=== PATIENT | male | born 1960 | race Caucasian/White ===

== ENCOUNTER 2023-10-18 11:40 | Inpatient (IN) | payer MEDICAID ==
[2023-10-18 12:46] LABS: BASOPHILS PERCENT AUTO 0.2 % (0.1-1.3); EOSINOPHILS ABSOLUTE AUTO 0.04 K/uL (0.00-0.40); EOSINOPHILS PERCENT AUTO 0.3 % (0.0-5.4); HEMATOCRIT 41.6 % (38.4-49.7); HEMOGLOBIN 13.2 g/dL (12.9-16.9); IMMATURE GRAN PERCENT AUTO 0.9 % (0.0-0.7); LYMPHOCYTES ABSOLUTE AUTO 0.87 K/uL (0.8-3.3); LYMPHOCYTES PERCENT AUTO 7.6 % (11.4-47.7); MEAN CORPUSCULAR HEMOGLOBIN 27.7 pg (31.6-35.5); MEAN CORPUSCULAR HGB CONC 31.7 g/dL (31.6-35.5); MEAN CORPUSCULAR VOLUME 87.4 fL (81.4-99.0); NEUTROPHILS ABSOLUTE AUTO 9.65 K/uL (1.0-7.6); PLATELET COUNT,PLT 257 K/uL (130-375); RED BLOOD CELL COUNT 4.76 M/uL (4.14-5.76); WHITE BLOOD CELL COUNT,WBC 11.5 K/uL (3.2-11.0)
[2023-10-18 12:51] LABS: BASOPHILS ABSOLUTE AUTO 0.02 K/uL (0.00-0.10)
[2023-10-18] MEDS ORDERED: Albuterol/Ipratropium 3.0-0.5 MG/3 ML Neb Soln NEB ONE (12:55)
[2023-10-18 13:16] LABS: A/G RATIO 0.5 (1.2-2.2); ALANINE AMINOTRANSFERASE,ALT 112 U/L (12-78); ALBUMIN 2.4 g/dL (3.4-5.0); ALKALINE PHOSPHATASE 96 U/L (46-116); ASPARTATE AMNIOTRANSFERASE,AST 43 U/L (15-37); BILIRUBIN TOTAL 1.1 mg/dL (0.2-1.0); BLOOD UREA NITROGEN,BUN 26 mg/dL (7-18); CALCIUM 8.1 mg/dL (8.5-10.1); CARBON DIOXIDE,CO2 22 mmol/L (21-32); CHLORIDE,CL 104 mmol/L (100-108); CREATININE 1.2 mg/dL (0.8-1.3); EST CRCL DRUG DOSING (CG) 60.96 mL/min; ESTIMATED GFR 68 mL/min (>60); GLUCOSE RANDOM 86 mg/dL (74-106); POTASSIUM,K 3.8 mmol/L (3.6-5.2); PROTEIN TOTAL,TP 7.3 g/dL (6.4-8.2); SODIUM,NA 139 mmol/L (140-148)
[2023-10-18 13:19] LABS: ANION GAP 16.8 mmol/L (5.0-14.0)
[2023-10-18 13:20] LABS: TROPONIN I HIGH SENSITIVITY 98.9 pg/mL (<=60.3)
[2023-10-18 14:38] LABS: CORONAVIRUS COVID-19 NAA NEGATIVE (NEGATIVE); INFLUENZA A NAA NEGATIVE (NEGATIVE); INFLUENZA B NAA NEGATIVE (NEGATIVE); RESPIRATORY SYNCYTIAL VIR NAA NEGATIVE (NEGATIVE)
[2023-10-18 14:45] LABS: BILIRUBIN,URINE SMALL (NEGATIVE); GLUCOSE,URINE NEGATIVE (NEGATIVE); KETONES,URINE NEGATIVE (NEGATIVE); LEUKOCYTE ESTERASE,URINE NEGATIVE (NEGATIVE); NITRITE,URINE NEGATIVE (NEGATIVE); OCCULT BLOOD,URINE TRACE-INTACT (NEGATIVE); PH,URINE 5.5 (5.0-8.0); PROTEIN,URINE >=300 mg/dL (NEGATIVE)
[2023-10-18 14:53] LABS: AMORPHOUS SEDIMENT,URINE NOT SEEN; APPEARANCE,URINE SLIGHTLY CLOUDY (CLEAR); BACTERIA,URINE FEW; COLOR,URINE OTHER (YELLOW); EPITHELIAL CELLS,URINE FEW; MUCUS,URINE MODERATE; RBC,URINE 0-5 (0-5); WBC,URINE 0-5 (0-5)
[2023-10-18] MEDS ORDERED: cefTRIAXone 2 GM in Sodium Chloride 0.9% 50 ML IV ONE (15:02)
[2023-10-18] MEDS ORDERED: Doxycycline 100 MG in Sodium Chloride 0.9% 100 ML IV ONE (15:03)
[2023-10-18] MEDS ORDERED: Furosemide 40 MG/4 ML VIAL IVPUSH ONE (15:19)
[2023-10-18] MEDS ORDERED: Magnesium Hydroxide 400 MG/5 ML Susp 30 ML Cup PO PRN (17:06)
[2023-10-18] MEDS ORDERED: Ondansetron 4 MG/2 ML SDV IV PRN (17:06)
[2023-10-18] MEDS ORDERED: Lisinopril 20 MG Tab PO ONE (17:06)
[2023-10-18] MEDS ORDERED: Ondansetron 4 MG Tab.DIS PO PRN (17:06)
[2023-10-18] MEDS ORDERED: Albuterol 0.083% 2.5 MG/3 ML Neb Soln NEB PRN (17:06)
[2023-10-18] MEDS ORDERED: Nicotine 21 MG/24 Hr Patch TRDERM PRN (17:06)
[2023-10-18] MEDS: Enoxaparin 40 MG/0.4 ML Syringe SUBCUT SCH (18:14)
[2023-10-18] MEDS: Sennosides/Docusate Sodium 50-8.6 MG Tab PO PRN (18:14)
[2023-10-18] MEDS: Carvedilol 3.125 MG Tab PO SCH (20:49)
[2023-10-18] MEDS: Lactobacillus Rhamnosus GG (Probiotic) Cap PO SCH (21:03)
[2023-10-18] MEDS: Gabapentin 100 MG Cap PO SCH (21:04)
[2023-10-19 03:41] LABS: HEMATOCRIT 34.6 % (38.4-49.7); HEMOGLOBIN 11.4 g/dL (12.9-16.9); MEAN CORPUSCULAR HEMOGLOBIN 28.2 pg (31.6-35.5); MEAN CORPUSCULAR HGB CONC 32.9 g/dL (31.6-35.5); MEAN CORPUSCULAR VOLUME 85.6 fL (81.4-99.0); RED BLOOD CELL COUNT 4.04 M/uL (4.14-5.76); WHITE BLOOD CELL COUNT,WBC 11.4 K/uL (3.2-11.0)
[2023-10-19] MEDS: Acetaminophen 325 MG Tab PO PRN ×2 (03:56→07:55)
[2023-10-19 04:05] LABS: ANION GAP 14.2 mmol/L (5.0-14.0); CALCIUM 7.5 mg/dL (8.5-10.1); CREATININE 1.1 mg/dL (0.8-1.3); EST CRCL DRUG DOSING (CG) 66.75 mL/min; MAGNESIUM 1.6 mg/dL (1.8-2.4); POTASSIUM,K 3.2 mmol/L (3.6-5.2)
[2023-10-19 04:06] LABS: TROPONIN I HIGH SENSITIVITY 137.5 pg/mL (<=60.3)
[2023-10-19] MEDS ORDERED: Potassium Chloride 20 MEQ Tab.ER PO ONE ×2 (04:10→16:58)
[2023-10-19] MEDS ORDERED: Magnesium Oxide 400 MG Tab PO ONE (04:10)
[2023-10-19] MEDS: Furosemide 40 MG/4 ML VIAL IVPUSH SCH ×3 (07:55→20:01)
[2023-10-19] MEDS: Aspirin 81 MG Tab.EC PO SCH (09:05)
[2023-10-19] MEDS: Carvedilol 3.125 MG Tab PO SCH ×2 (09:05→20:01)
[2023-10-19] MEDS: Lactobacillus Rhamnosus GG (Probiotic) Cap PO SCH ×2 (09:05→20:01)
[2023-10-19] MEDS: Lisinopril 20 MG Tab PO SCH (09:06)
[2023-10-19] MEDS: Doxycycline 100 MG Cap PO SCH ×2 (13:33→20:01)
[2023-10-19] MEDS: Magnesium Sulfate/Water 2 GM in Premix Bag 1 BAG IV SCH ×2 (13:34→17:32)
[2023-10-19] MEDS: cefTRIAXone 1 GM in Sodium Chloride 0.9% 50 ML IV SCH (16:40)
[2023-10-19] MEDS: Enoxaparin 40 MG/0.4 ML Syringe SUBCUT SCH (17:30)
[2023-10-19] MEDS: Gabapentin 100 MG Cap PO SCH (20:01)
[2023-10-20 04:53] LABS: CALCIUM 7.5 mg/dL (8.5-10.1); CREATININE 1.2 mg/dL (0.8-1.3); EST CRCL DRUG DOSING (CG) 61.18 mL/min; POTASSIUM,K 3.7 mmol/L (3.6-5.2)
[2023-10-20 05:10] LABS: ANION GAP 13.7 mmol/L (5.0-14.0)
[2023-10-20 05:11] LABS: TROPONIN I HIGH SENSITIVITY 96.1 pg/mL (<=60.3)
[2023-10-20] MEDS: Acetaminophen 325 MG Tab PO PRN (07:29)
[2023-10-20] MEDS: Carvedilol 3.125 MG Tab PO SCH ×2 (08:47→20:52)
[2023-10-20] MEDS: Lactobacillus Rhamnosus GG (Probiotic) Cap PO SCH ×2 (08:49→20:52)
[2023-10-20] MEDS: Aspirin 81 MG Tab.EC PO SCH (08:49)
[2023-10-20] MEDS: Lisinopril 20 MG Tab PO SCH (08:50)
[2023-10-20] MEDS: Doxycycline 100 MG Cap PO SCH ×2 (08:50→20:53)
[2023-10-20] MEDS: Furosemide 40 MG/4 ML VIAL IVPUSH SCH (08:50)
[2023-10-20] MEDS ORDERED: Potassium Chloride 20 MEQ Tab.ER PO ONE (14:00)
[2023-10-20] MEDS: cefTRIAXone 1 GM in Sodium Chloride 0.9% 50 ML IV SCH (14:41)
[2023-10-20] MEDS: Enoxaparin 40 MG/0.4 ML Syringe SUBCUT SCH (17:31)
[2023-10-20] MEDS: Gabapentin 100 MG Cap PO SCH (20:53)
[2023-10-21] MEDS: Acetaminophen 325 MG Tab PO PRN ×2 (00:44→13:30)
[2023-10-21 05:23] LABS: CALCIUM 7.6 mg/dL (8.5-10.1); CREATININE 1.2 mg/dL (0.8-1.3); EST CRCL DRUG DOSING (CG) 63.01 mL/min; POTASSIUM,K 3.8 mmol/L (3.6-5.2)
[2023-10-21 05:26] LABS: ANION GAP 12.8 mmol/L (5.0-14.0)
[2023-10-21] MEDS: Lactobacillus Rhamnosus GG (Probiotic) Cap PO SCH ×2 (08:35→21:25)
[2023-10-21] MEDS: Aspirin 81 MG Tab.EC PO SCH (08:35)
[2023-10-21] MEDS: Doxycycline 100 MG Cap PO SCH ×2 (08:36→21:26)
[2023-10-21] MEDS: Carvedilol 3.125 MG Tab PO SCH ×2 (08:36→21:25)
[2023-10-21] MEDS: Lisinopril 20 MG Tab PO SCH (08:36)
[2023-10-21] MEDS ORDERED: Furosemide 40 MG/4 ML VIAL IVPUSH ONE ×2 (09:00→19:00)
[2023-10-21] MEDS ORDERED: Potassium Chloride 20 MEQ Tab.ER PO ONE (09:00)
[2023-10-21] MEDS: Tamsulosin 0.4 MG Cap.ER PO SCH (13:24)
[2023-10-21] MEDS: cefTRIAXone 1 GM in Sodium Chloride 0.9% 50 ML IV SCH (14:38)
[2023-10-21] MEDS ORDERED: Furosemide 40 MG/4 ML VIAL ONE (16:47)
[2023-10-21] MEDS: Enoxaparin 40 MG/0.4 ML Syringe SUBCUT SCH (18:26)
[2023-10-21] MEDS: Gabapentin 100 MG Cap PO SCH (21:25)
[2023-10-22 06:20] LABS: EST CRCL DRUG DOSING (CG) 68.74 mL/min
[2023-10-22 06:43] LABS: ANION GAP 14.4 mmol/L (5.0-14.0); POTASSIUM,K 4.4 mmol/L (3.6-5.2)
[2023-10-22 06:44] LABS: CALCIUM 7.9 mg/dL (8.5-10.1); CREATININE 1.1 mg/dL (0.8-1.3)
[2023-10-22] MEDS ORDERED: Furosemide 40 MG/4 ML VIAL IVPUSH ONE ×2 (07:10→19:00)
[2023-10-22] MEDS: Lactobacillus Rhamnosus GG (Probiotic) Cap PO SCH ×2 (08:56→20:45)
[2023-10-22] MEDS: Tamsulosin 0.4 MG Cap.ER PO SCH (08:56)
[2023-10-22] MEDS: Aspirin 81 MG Tab.EC PO SCH (08:56)
[2023-10-22] MEDS: Doxycycline 100 MG Cap PO SCH ×2 (08:57→20:45)
[2023-10-22] MEDS: Lisinopril 20 MG Tab PO SCH (08:58)
[2023-10-22] MEDS: Carvedilol 3.125 MG Tab PO SCH ×2 (09:00→20:44)
[2023-10-22] MEDS: cefTRIAXone 1 GM in Sodium Chloride 0.9% 50 ML IV SCH (15:17)
[2023-10-22] MEDS: Enoxaparin 40 MG/0.4 ML Syringe SUBCUT SCH (17:36)
[2023-10-22] MEDS: Gabapentin 100 MG Cap PO SCH (20:45)
[2023-10-23 05:59] LABS: CALCIUM 7.9 mg/dL (8.5-10.1); CREATININE 1.1 mg/dL (0.8-1.3); EST CRCL DRUG DOSING (CG) 68.74 mL/min; MAGNESIUM 1.4 mg/dL (1.8-2.4); POTASSIUM,K 3.3 mmol/L (3.6-5.2)
[2023-10-23 06:03] LABS: ANION GAP 13.3 mmol/L (5.0-14.0)
[2023-10-23] MEDS: Aspirin 81 MG Tab.EC PO SCH (08:19)
[2023-10-23] MEDS: Carvedilol 3.125 MG Tab PO SCH (08:19)
[2023-10-23] MEDS: Lisinopril 20 MG Tab PO SCH (08:20)
[2023-10-23] MEDS: Doxycycline 100 MG Cap PO SCH ×2 (08:20→20:12)
[2023-10-23] MEDS: Tamsulosin 0.4 MG Cap.ER PO SCH (08:20)
[2023-10-23] MEDS: Lactobacillus Rhamnosus GG (Probiotic) Cap PO SCH ×2 (08:20→20:11)
[2023-10-23] MEDS: Furosemide 40 MG Tab PO SCH (08:22)
[2023-10-23] MEDS ORDERED: Potassium Chloride 20 MEQ Tab.ER PO ONE ×2 (09:00→17:00)
[2023-10-23] MEDS: Magnesium Sulfate/Water 2 GM in Premix Bag 1 BAG IV SCH ×3 (09:06→21:33)
[2023-10-23] MEDS: Carvedilol 12.5 MG Tab PO SCH ×2 (09:06→20:12)
[2023-10-23] MEDS: Magnesium Oxide 400 MG Tab PO SCH ×2 (09:06→20:12)
[2023-10-23] MEDS ORDERED: Iopamidol 612 MG/ML 100 ML Bottle IV ONE (13:20)
[2023-10-23] MEDS: cefTRIAXone 1 GM in Sodium Chloride 0.9% 50 ML IV SCH (15:30)
[2023-10-23] MEDS: Enoxaparin 40 MG/0.4 ML Syringe SUBCUT SCH (17:34)
[2023-10-23] MEDS: Gabapentin 100 MG Cap PO SCH (20:12)
[2023-10-24 05:42] LABS: CALCIUM 7.9 mg/dL (8.5-10.1); CREATININE 1.2 mg/dL (0.8-1.3); EST CRCL DRUG DOSING (CG) 63.01 mL/min; MAGNESIUM 2.6 mg/dL (1.8-2.4); POTASSIUM,K 4.5 mmol/L (3.6-5.2)
[2023-10-24 05:49] LABS: ANION GAP 12.5 mmol/L (5.0-14.0)
[2023-10-24] MEDS: Lactobacillus Rhamnosus GG (Probiotic) Cap PO SCH ×2 (09:30→20:07)
[2023-10-24] MEDS: Doxycycline 100 MG Cap PO SCH ×2 (09:30→20:08)
[2023-10-24] MEDS: Aspirin 81 MG Tab.EC PO SCH (09:30)
[2023-10-24] MEDS: Magnesium Oxide 400 MG Tab PO SCH ×2 (09:30→20:07)
[2023-10-24] MEDS: Carvedilol 12.5 MG Tab PO SCH ×2 (09:31→20:07)
[2023-10-24] MEDS: Lisinopril 20 MG Tab PO SCH (09:31)
[2023-10-24] MEDS: Furosemide 40 MG Tab PO SCH (09:31)
[2023-10-24] MEDS: Tamsulosin 0.4 MG Cap.ER PO SCH (09:34)
[2023-10-24] MEDS ORDERED: Iopamidol 755 Mg/ML 100 ML Bottle IV ONE (11:37)
[2023-10-24] MEDS ORDERED: Sodium Chloride 0.9% 100 ML IV SCH (11:45)
[2023-10-24] MEDS: Clopidogrel 75 MG Tab PO SCH (12:40)
[2023-10-24] MEDS: cefTRIAXone 1 GM in Sodium Chloride 0.9% 50 ML IV SCH (15:30)
[2023-10-24] MEDS: Enoxaparin 40 MG/0.4 ML Syringe SUBCUT SCH (17:59)
[2023-10-24] MEDS: Gabapentin 100 MG Cap PO SCH (20:07)
[2023-10-24] MEDS: Acetaminophen 325 MG Tab PO PRN (20:07)
[2023-10-24] MEDS: atorvaSTATin 20 MG Tab PO SCH (20:08)
[2023-10-25] MEDS: Furosemide 40 MG Tab PO SCH (08:44)
[2023-10-25] MEDS: Aspirin 81 MG Tab.EC PO SCH (08:44)
[2023-10-25] MEDS: Doxycycline 100 MG Cap PO SCH (08:45)
[2023-10-25] MEDS: Clopidogrel 75 MG Tab PO SCH (08:45)
[2023-10-25] MEDS: Lactobacillus Rhamnosus GG (Probiotic) Cap PO SCH ×2 (08:45→21:19)
[2023-10-25] MEDS: Magnesium Oxide 400 MG Tab PO SCH ×2 (08:45→21:19)
[2023-10-25] MEDS: Carvedilol 12.5 MG Tab PO SCH ×2 (08:46→21:20)
[2023-10-25] MEDS: Tamsulosin 0.4 MG Cap.ER PO SCH (08:46)
[2023-10-25] MEDS: Lisinopril 20 MG Tab PO SCH (08:47)
[2023-10-25] MEDS: Sennosides/Docusate Sodium 50-8.6 MG Tab PO PRN (10:16)
[2023-10-25] MEDS: Enoxaparin 40 MG/0.4 ML Syringe SUBCUT SCH (17:32)
[2023-10-25] MEDS: atorvaSTATin 20 MG Tab PO SCH (21:19)
[2023-10-25] MEDS: Gabapentin 100 MG Cap PO SCH (21:19)
[2023-10-26 06:14] LABS: HEMATOCRIT 35.3 % (38.4-49.7); HEMOGLOBIN 11.5 g/dL (12.9-16.9); MEAN CORPUSCULAR HEMOGLOBIN 27.6 pg (31.6-35.5); MEAN CORPUSCULAR HGB CONC 32.6 g/dL (31.6-35.5); MEAN CORPUSCULAR VOLUME 84.7 fL (81.4-99.0); RED BLOOD CELL COUNT 4.17 M/uL (4.14-5.76)
[2023-10-26 06:21] LABS: CALCIUM 8.2 mg/dL (8.5-10.1); CREATININE 1.1 mg/dL (0.8-1.3); EST CRCL DRUG DOSING (CG) 68.74 mL/min; POTASSIUM,K 4.6 mmol/L (3.6-5.2)
[2023-10-26 06:23] LABS: ANION GAP 11.6 mmol/L (5.0-14.0)
[2023-10-26] MEDS: Tamsulosin 0.4 MG Cap.ER PO SCH (08:46)
[2023-10-26] MEDS: Magnesium Oxide 400 MG Tab PO SCH ×2 (08:46→21:09)
[2023-10-26] MEDS: Lactobacillus Rhamnosus GG (Probiotic) Cap PO SCH ×2 (08:46→21:09)
[2023-10-26] MEDS: Aspirin 81 MG Tab.EC PO SCH (08:46)
[2023-10-26] MEDS: Clopidogrel 75 MG Tab PO SCH (08:47)
[2023-10-26] MEDS: Lisinopril 20 MG Tab PO SCH (08:47)
[2023-10-26] MEDS: Furosemide 40 MG Tab PO SCH (08:47)
[2023-10-26] MEDS: Carvedilol 12.5 MG Tab PO SCH ×2 (08:49→21:10)
[2023-10-26] MEDS: Enoxaparin 40 MG/0.4 ML Syringe SUBCUT SCH (18:02)
[2023-10-26] MEDS: atorvaSTATin 20 MG Tab PO SCH (21:10)
[2023-10-26] MEDS: Gabapentin 100 MG Cap PO SCH (21:10)
[2023-10-27] MEDS: Furosemide 40 MG Tab PO SCH (08:00)
[2023-10-27] MEDS: Lactobacillus Rhamnosus GG (Probiotic) Cap PO SCH ×2 (08:00→20:06)
[2023-10-27] MEDS: Aspirin 81 MG Tab.EC PO SCH (08:00)
[2023-10-27] MEDS: Clopidogrel 75 MG Tab PO SCH (08:01)
[2023-10-27] MEDS: Carvedilol 12.5 MG Tab PO SCH ×2 (08:03→20:07)
[2023-10-27] MEDS: Tamsulosin 0.4 MG Cap.ER PO SCH (08:04)
[2023-10-27] MEDS: Lisinopril 20 MG Tab PO SCH (08:04)
[2023-10-27] MEDS: Magnesium Oxide 400 MG Tab PO SCH ×2 (10:11→20:06)
[2023-10-27] MEDS: Acetaminophen 325 MG Tab PO PRN (11:39)
[2023-10-27] MEDS: Enoxaparin 40 MG/0.4 ML Syringe SUBCUT SCH (18:51)
[2023-10-27] MEDS: Gabapentin 100 MG Cap PO SCH (20:06)
[2023-10-27] MEDS: atorvaSTATin 20 MG Tab PO SCH (20:06)
[2023-10-28 05:12] LABS: CALCIUM 8.4 mg/dL (8.5-10.1); CREATININE 1.2 mg/dL (0.8-1.3); EST CRCL DRUG DOSING (CG) 63.01 mL/min
[2023-10-28] MEDS: Lactobacillus Rhamnosus GG (Probiotic) Cap PO SCH ×2 (09:09→20:01)
[2023-10-28] MEDS: Magnesium Oxide 400 MG Tab PO SCH ×2 (09:09→20:02)
[2023-10-28] MEDS: Tamsulosin 0.4 MG Cap.ER PO SCH (09:10)
[2023-10-28] MEDS: Furosemide 40 MG Tab PO SCH (09:10)
[2023-10-28] MEDS: Aspirin 81 MG Tab.EC PO SCH (09:10)
[2023-10-28] MEDS: Clopidogrel 75 MG Tab PO SCH (09:10)
[2023-10-28] MEDS: Lisinopril 20 MG Tab PO SCH (09:11)
[2023-10-28] MEDS: Carvedilol 12.5 MG Tab PO SCH ×2 (09:13→20:01)
[2023-10-28] MEDS: Enoxaparin 40 MG/0.4 ML Syringe SUBCUT SCH (17:35)
[2023-10-28] MEDS: atorvaSTATin 20 MG Tab PO SCH (20:02)
[2023-10-28] MEDS: Gabapentin 100 MG Cap PO SCH (20:02)
[2023-10-29] MEDS: Lisinopril 20 MG Tab PO SCH (08:41)
[2023-10-29] MEDS: Lactobacillus Rhamnosus GG (Probiotic) Cap PO SCH ×2 (08:41→20:10)
[2023-10-29] MEDS: Magnesium Oxide 400 MG Tab PO SCH ×2 (08:42→20:10)
[2023-10-29] MEDS: Clopidogrel 75 MG Tab PO SCH (08:42)
[2023-10-29] MEDS: Carvedilol 12.5 MG Tab PO SCH ×2 (08:42→20:10)
[2023-10-29] MEDS: Aspirin 81 MG Tab.EC PO SCH (08:42)
[2023-10-29] MEDS: Tamsulosin 0.4 MG Cap.ER PO SCH (08:42)
[2023-10-29] MEDS: Furosemide 40 MG Tab PO SCH (08:42)
[2023-10-29] MEDS: Enoxaparin 40 MG/0.4 ML Syringe SUBCUT SCH (19:07)
[2023-10-29] MEDS: atorvaSTATin 20 MG Tab PO SCH (20:10)
[2023-10-29] MEDS: Gabapentin 100 MG Cap PO SCH (20:11)
[2023-10-30 06:45] LABS: CALCIUM 8.2 mg/dL (8.5-10.1); CREATININE 1.2 mg/dL (0.8-1.3); EST CRCL DRUG DOSING (CG) 63.01 mL/min; POTASSIUM,K 3.9 mmol/L (3.6-5.2)
[2023-10-30 06:47] LABS: ANION GAP 12.9 mmol/L (5.0-14.0)
[2023-10-30] MEDS: Aspirin 81 MG Tab.EC PO SCH (08:19)
[2023-10-30] MEDS: Clopidogrel 75 MG Tab PO SCH (08:19)
[2023-10-30] MEDS: Magnesium Oxide 400 MG Tab PO SCH (08:19)
[2023-10-30] MEDS: Tamsulosin 0.4 MG Cap.ER PO SCH (08:19)
[2023-10-30] MEDS: Furosemide 40 MG Tab PO SCH (08:19)
[2023-10-30] MEDS: Lactobacillus Rhamnosus GG (Probiotic) Cap PO SCH (08:19)
[2023-10-30] MEDS: Carvedilol 12.5 MG Tab PO SCH (08:20)
[2023-10-30] MEDS: Lisinopril 20 MG Tab PO SCH (08:20)
[2023-10-30] MEDS: Acetaminophen 325 MG Tab PO PRN (09:17)
[2023-10-30] MEDS ORDERED: Melatonin 3 MG Tab PO SCH (21:00)
== END 2023-10-30 15:18 | DRG 291 ==
LOC: JP.ED 11:40 → JP.MS 16:19
PROVIDERS: ADMIT Internal Medicine; ATTEND Internal Medicine
PROC: 0TPB70Z Removal of Drainage Device from Bladder, Via Natural or Artificial Opening (ICD-10-PCS; principal; 2023-10-23)
DX: I11.0 Hypertensive heart disease with heart failure (principal); I50.43 Acute on chronic combined systolic (congestive) and diastolic (congestive) heart failure; I63.9 Cerebral infarction, unspecified; J18.9 Pneumonia, unspecified organism; I24.89 Other forms of acute ischemic heart disease; Z66 Do not resuscitate; F17.210 Nicotine dependence, cigarettes, uncomplicated; R33.9 Retention of urine, unspecified; G47.33 Obstructive sleep apnea (adult) (pediatric); I25.10 Atherosclerotic heart disease of native coronary artery without angina pectoris; I27.20 Pulmonary hypertension, unspecified; Z79.82 Long term (current) use of aspirin; Z95.5 Presence of coronary angioplasty implant and graft; Z95.1 Presence of aortocoronary bypass graft; Z98.890 Other specified postprocedural states; Z11.52 Encounter for screening for COVID-19
CPT/HCPCS: 0241U; 36415; 51702; 70470; 70470-26; 70496; 70496-26; 70498; 70498-26; 71250; 80048; 80053; 81001; 83605; 83735; 83880; 84132; 84145; 84484; 85025; 85027; 87040; 93005; 93010; 93306; 94640; 96125-GO; 96365; 96366; 96367; 96375; 97110-GP; 97116-GP; 97161-GP; 97165-GO; 97530-GP; 99285; 99285-25; A9270-GY; J0696; J1650; J1940; J3475; J3490; J7620; Q9967

== ENCOUNTER 2023-11-02 21:21 | Inpatient (IN) | payer MEDICAID ==
[2023-11-02] MEDS ORDERED: Sodium Chloride 0.9% 10 ML Syringe FLUSH PRN (22:21)
[2023-11-02] MEDS ORDERED: Pantoprazole 40 MG Vial IVPUSH ONE (22:21)
[2023-11-02 22:37] LABS: BASOPHILS ABSOLUTE AUTO 0.04 K/uL (0.00-0.10); BASOPHILS PERCENT AUTO 0.5 % (0.1-1.3); EOSINOPHILS ABSOLUTE AUTO 0.06 K/uL (0.00-0.40); EOSINOPHILS PERCENT AUTO 0.8 % (0.0-5.4); HEMATOCRIT 28.5 % (38.4-49.7); HEMOGLOBIN 9.3 g/dL (12.9-16.9); IMMATURE GRAN ABSOLUTE AUTO 0.09 K/uL (0.00-0.23); IMMATURE GRAN PERCENT AUTO 1.2 % (0.0-0.7); LYMPHOCYTES ABSOLUTE AUTO 0.84 K/uL (0.8-3.3); LYMPHOCYTES PERCENT AUTO 11.5 % (11.4-47.7); MEAN CORPUSCULAR HEMOGLOBIN 27.4 pg (31.6-35.5); MEAN CORPUSCULAR HGB CONC 32.6 g/dL (31.6-35.5); MEAN CORPUSCULAR VOLUME 83.8 fL (81.4-99.0); MONOCYTES ABSOLUTE AUTO 0.88 K/uL (0.20-0.90); MONOCYTES PERCENT AUTO 12.1 % (3.3-12.6); NEUTROPHILS ABSOLUTE AUTO 5.38 K/uL (1.0-7.6); NEUTROPHILS PERCENT AUTO 73.9 % (40.0-78.1); PLATELET COUNT,PLT 316 K/uL (130-375); WHITE BLOOD CELL COUNT,WBC 7.3 K/uL (3.2-11.0)
[2023-11-02 22:58] LABS: INR 1.1; PROTHROMBIN TIME 11.1 sec (9.2-10.6); PTT,PARTIAL THROMBOPLSTIN TIME 28.3 sec (21.8-27.3)
[2023-11-02 23:00] LABS: A/G RATIO 0.5 (1.2-2.2); ALANINE AMINOTRANSFERASE,ALT 68 U/L (12-78); ALBUMIN 2.3 g/dL (3.4-5.0); ALKALINE PHOSPHATASE 130 U/L (46-116); ASPARTATE AMNIOTRANSFERASE,AST 64 U/L (15-37); BILIRUBIN TOTAL 0.6 mg/dL (0.2-1.0); BLOOD UREA NITROGEN,BUN 48 mg/dL (7-18); CALCIUM 8.2 mg/dL (8.5-10.1); CARBON DIOXIDE,CO2 22 mmol/L (21-32); CHLORIDE,CL 97 mmol/L (100-108); CREATININE 1.4 mg/dL (0.8-1.3); EST CRCL DRUG DOSING (CG) 55.76 mL/min; ESTIMATED GFR 56 mL/min (>60); GLUCOSE RANDOM 93 mg/dL (74-106); POTASSIUM,K 3.6 mmol/L (3.6-5.2); PROTEIN TOTAL,TP 7.1 g/dL (6.4-8.2); SODIUM,NA 129 mmol/L (140-148)
[2023-11-02 23:01] LABS: ANION GAP 13.6 mmol/L (5.0-14.0)
[2023-11-03] MEDS ORDERED: Ondansetron 4 MG/2 ML SDV IVPUSH STA (00:02)
[2023-11-03 00:32] LABS: APPEARANCE,URINE CLEAR (CLEAR); BILIRUBIN,URINE NEGATIVE (NEGATIVE); COLOR,URINE YELLOW (YELLOW); GLUCOSE,URINE NEGATIVE (NEGATIVE); KETONES,URINE NEGATIVE (NEGATIVE); LEUKOCYTE ESTERASE,URINE NEGATIVE (NEGATIVE); NITRITE,URINE NEGATIVE (NEGATIVE); OCCULT BLOOD,URINE TRACE-INTACT (NEGATIVE); PH,URINE 5.5 (5.0-8.0); PROTEIN,URINE TRACE mg/dL (NEGATIVE); UROBILINOGEN,URINE 0.2 EU/dL (0.2-1.0)
[2023-11-03 00:34] LABS: AMORPHOUS SEDIMENT,URINE NOT SEEN; BACTERIA,URINE FEW; EPITHELIAL CELLS,URINE RARE; MUCUS,URINE RARE; RBC,URINE 0-5 (0-5); WBC,URINE 0-5 (0-5)
[2023-11-03] MEDS ORDERED: Nicotine 21 MG/24 Hr Patch TRDERM PRN (00:40)
[2023-11-03 01:01] LABS: INFLUENZA A NAA NEGATIVE (NEGATIVE); INFLUENZA B NAA NEGATIVE (NEGATIVE); RESPIRATORY SYNCYTIAL VIR NAA NEGATIVE (NEGATIVE)
[2023-11-03 01:03] LABS: CORONAVIRUS COVID-19 NAA POSITIVE (NEGATIVE)
[2023-11-03] MEDS ORDERED: Ondansetron 4 MG Tab.DIS PO PRN (01:23)
[2023-11-03] MEDS ORDERED: Ondansetron 4 MG/2 ML SDV IV PRN (01:23)
[2023-11-03] MEDS ORDERED: Magnesium Hydroxide 400 MG/5 ML Susp 30 ML Cup PO PRN (01:23)
[2023-11-03] MEDS: Sodium Chloride 0.9% 1,000 ML IV SCH ×3 (01:49→19:51)
[2023-11-03 05:09] LABS: HEMATOCRIT 28.2 % (38.4-49.7); HEMOGLOBIN 9.1 g/dL (12.9-16.9); MEAN CORPUSCULAR HEMOGLOBIN 27.4 pg (31.6-35.5); MEAN CORPUSCULAR HGB CONC 32.3 g/dL (31.6-35.5); MEAN CORPUSCULAR VOLUME 84.9 fL (81.4-99.0); RED BLOOD CELL COUNT 3.32 M/uL (4.14-5.76); WHITE BLOOD CELL COUNT,WBC 10.4 K/uL (3.2-11.0)
[2023-11-03 05:25] LABS: BLOOD UREA NITROGEN,BUN 46 mg/dL (7-18); CALCIUM 7.8 mg/dL (8.5-10.1); CARBON DIOXIDE,CO2 22 mmol/L (21-32); CHLORIDE,CL 99 mmol/L (100-108); CREATININE 1.3 mg/dL (0.8-1.3); ESTIMATED GFR 62 mL/min (>60); GLUCOSE RANDOM 89 mg/dL (74-106); POTASSIUM,K 3.4 mmol/L (3.6-5.2); SODIUM,NA 131 mmol/L (140-148)
[2023-11-03 05:28] LABS: ANION GAP 13.4 mmol/L (5.0-14.0)
[2023-11-03] MEDS ORDERED: Non-Formulary Medication 1 Each (Lisinopril [Lisinopril] 40 MG Tablet) PO SCH (09:00)
[2023-11-03] MEDS: Lisinopril 20 MG Tab PO SCH (09:17)
[2023-11-03] MEDS: Pantoprazole 40 MG Vial IV SCH ×3 (09:18→22:06)
[2023-11-03] MEDS: Potassium Chloride 10 MEQ in Premix Bag 1 BAG IV SCH ×4 (10:08→13:32)
[2023-11-03] MEDS: Sucralfate Suspension 1 GM/10 ML Cup PO SCH ×3 (10:09→19:50)
[2023-11-03] MEDS: Magnesium Oxide 400 MG Tab PO SCH (10:46)
[2023-11-03] MEDS: Furosemide 40 MG Tab PO SCH (10:47)
[2023-11-03] MEDS: Carvedilol 12.5 MG Tab PO SCH ×3 (10:47→20:05)
[2023-11-03] MEDS: Tamsulosin 0.4 MG Cap.ER PO SCH (10:48)
[2023-11-03] MEDS: Gabapentin 100 MG Cap PO SCH ×2 (19:51→20:05)
[2023-11-03] MEDS: atorvaSTATin 20 MG Tab PO SCH ×2 (19:51→20:05)
[2023-11-03] MEDS ORDERED: Non-Formulary Medication 1 Each (Atorvastatin [Lipitor] 40 MG Tablet) PO SCH (21:00)
[2023-11-03] MEDS ORDERED: Non-Formulary Medication 1 Each (Melatonin [Melatonin] 10 MG Tablet) PO SCH ×2 (21:00)
[2023-11-03] MEDS: Melatonin 3 MG Tab PO PRN (23:05)
[2023-11-03] MEDS: Acetaminophen 325 MG Tab PO PRN (23:05)
[2023-11-04] MEDS: Sodium Chloride 0.9% 1,000 ML IV SCH (00:08)
[2023-11-04] MEDS: oxyCODONE 5 MG Tab PO PRN ×2 (00:34→14:51)
[2023-11-04 03:08] LABS: HEMATOCRIT 25.9 % (38.4-49.7); HEMOGLOBIN 8.3 g/dL (12.9-16.9); MEAN CORPUSCULAR HEMOGLOBIN 27.9 pg (31.6-35.5); MEAN CORPUSCULAR VOLUME 87.2 fL (81.4-99.0); RED BLOOD CELL COUNT 2.97 M/uL (4.14-5.76); WHITE BLOOD CELL COUNT,WBC 9.6 K/uL (3.2-11.0)
[2023-11-04 03:24] LABS: CALCIUM 7.2 mg/dL (8.5-10.1); CREATININE 1.1 mg/dL (0.8-1.3); EST CRCL DRUG DOSING (CG) 69.77 mL/min; POTASSIUM,K 3.1 mmol/L (3.6-5.2)
[2023-11-04 03:27] LABS: ANION GAP 11.1 mmol/L (5.0-14.0)
[2023-11-04] MEDS ORDERED: Potassium Chloride 20 MEQ Tab.ER PO ONE ×2 (08:20→17:00)
[2023-11-04] MEDS: Tamsulosin 0.4 MG Cap.ER PO SCH (08:33)
[2023-11-04] MEDS: Sucralfate Suspension 1 GM/10 ML Cup PO SCH ×2 (08:33→10:01)
[2023-11-04] MEDS: Carvedilol 12.5 MG Tab PO SCH ×2 (08:33→20:12)
[2023-11-04] MEDS: Magnesium Oxide 400 MG Tab PO SCH ×2 (08:36→20:12)
[2023-11-04] MEDS: Lisinopril 20 MG Tab PO SCH (08:36)
[2023-11-04] MEDS: Furosemide 40 MG Tab PO SCH (08:36)
[2023-11-04] MEDS: Pantoprazole 40 MG Vial IV SCH ×2 (10:00→21:54)
[2023-11-04] MEDS: Magnesium Sulfate/Water 2 GM in Premix Bag 1 BAG IV SCH ×2 (14:48→20:12)
[2023-11-04] MEDS: Sucralfate 1 GM Tab PO SCH ×2 (17:54→20:13)
[2023-11-04] MEDS: atorvaSTATin 20 MG Tab PO SCH (20:12)
[2023-11-04] MEDS: Gabapentin 100 MG Cap PO SCH (20:12)
[2023-11-05 05:58] LABS: CALCIUM 7.3 mg/dL (8.5-10.1); EST CRCL DRUG DOSING (CG) 78.07 mL/min; MAGNESIUM 2.2 mg/dL (1.8-2.4); POTASSIUM,K 3.7 mmol/L (3.6-5.2)
[2023-11-05 06:00] LABS: ANION GAP 12.7 mmol/L (5.0-14.0)
[2023-11-05] MEDS: Sucralfate 1 GM Tab PO SCH ×4 (07:52→20:30)
[2023-11-05] MEDS: Magnesium Oxide 400 MG Tab PO SCH ×2 (08:00→20:31)
[2023-11-05] MEDS: Lisinopril 20 MG Tab PO SCH (08:00)
[2023-11-05] MEDS: Furosemide 40 MG Tab PO SCH (08:00)
[2023-11-05] MEDS: Tamsulosin 0.4 MG Cap.ER PO SCH (08:00)
[2023-11-05] MEDS: Carvedilol 12.5 MG Tab PO SCH ×2 (08:00→20:31)
[2023-11-05] MEDS: Pantoprazole 40 MG Vial IV SCH ×2 (10:37→21:12)
[2023-11-05] MEDS ORDERED: Acetaminophen/HYDROcodone 325-5 MG Tab PO PRN (10:56)
[2023-11-05] MEDS: oxyCODONE 5 MG Tab PO PRN (13:07)
[2023-11-05] MEDS: Melatonin 3 MG Tab PO PRN (20:30)
[2023-11-05] MEDS: Acetaminophen 325 MG Tab PO PRN (20:30)
[2023-11-05] MEDS: Sennosides/Docusate Sodium 50-8.6 MG Tab PO PRN (20:30)
[2023-11-05] MEDS: atorvaSTATin 20 MG Tab PO SCH (20:31)
[2023-11-05] MEDS: Gabapentin 100 MG Cap PO SCH (20:32)
[2023-11-06] MEDS: Furosemide 40 MG Tab PO SCH (08:47)
[2023-11-06] MEDS: Magnesium Oxide 400 MG Tab PO SCH ×2 (08:48→20:22)
[2023-11-06] MEDS: Tamsulosin 0.4 MG Cap.ER PO SCH (08:48)
[2023-11-06] MEDS: Sucralfate 1 GM Tab PO SCH ×4 (08:48→20:22)
[2023-11-06] MEDS: Carvedilol 12.5 MG Tab PO SCH ×2 (08:48→20:22)
[2023-11-06] MEDS: Lisinopril 20 MG Tab PO SCH (08:48)
[2023-11-06] MEDS: Pantoprazole 40 MG Tab.CR PO SCH ×2 (09:00→16:48)
[2023-11-06] MEDS: Melatonin 3 MG Tab PO PRN (20:21)
[2023-11-06] MEDS: Acetaminophen 325 MG Tab PO PRN (20:22)
[2023-11-06] MEDS: Sennosides/Docusate Sodium 50-8.6 MG Tab PO PRN (20:22)
[2023-11-06] MEDS: atorvaSTATin 20 MG Tab PO SCH (20:23)
[2023-11-06] MEDS: Gabapentin 100 MG Cap PO SCH (20:23)
[2023-11-07] MEDS: oxyCODONE 5 MG Tab PO PRN (00:54)
[2023-11-07] MEDS: Sucralfate 1 GM Tab PO SCH ×2 (07:25→12:08)
[2023-11-07] MEDS: Pantoprazole 40 MG Tab.CR PO SCH (07:25)
[2023-11-07] MEDS: Magnesium Oxide 400 MG Tab PO SCH (09:36)
[2023-11-07] MEDS: Furosemide 40 MG Tab PO SCH (09:36)
[2023-11-07] MEDS: Lisinopril 20 MG Tab PO SCH (09:37)
[2023-11-07] MEDS: Carvedilol 12.5 MG Tab PO SCH (09:37)
[2023-11-07] MEDS: Tamsulosin 0.4 MG Cap.ER PO SCH (09:37)
== END 2023-11-07 15:10 | DRG 377 ==
LOC: JP.ED 21:21 → UNDOADMIN 11-03 00:22 → JP.MS 11-03 00:22
PROVIDERS: ADMIT Registered Nurse; ATTEND Hospitalist
PROC: 30233N1 Transfusion of Nonautologous Red Blood Cells into Peripheral Vein, Percutaneous Approach (ICD-10-PCS; principal; 2023-11-04)
DX: K92.2 Gastrointestinal hemorrhage, unspecified (principal); I50.43 Acute on chronic combined systolic (congestive) and diastolic (congestive) heart failure; U07.1 COVID-19; D62 Acute posthemorrhagic anemia; N17.9 Acute kidney failure, unspecified; I25.10 Atherosclerotic heart disease of native coronary artery without angina pectoris; G47.33 Obstructive sleep apnea (adult) (pediatric); I11.0 Hypertensive heart disease with heart failure; R33.9 Retention of urine, unspecified; F17.210 Nicotine dependence, cigarettes, uncomplicated; Z86.73 Personal history of transient ischemic attack (TIA), and cerebral infarction without residual deficits; Z79.899 Other long term (current) drug therapy; Z79.02 Long term (current) use of antithrombotics/antiplatelets; Z79.82 Long term (current) use of aspirin; Z95.1 Presence of aortocoronary bypass graft; Z95.5 Presence of coronary angioplasty implant and graft
CPT/HCPCS: 0241U; 36415; 36430; 70450; 71045; 71045-26; 80048; 80053; 81001; 82140; 83735; 84484; 85018; 85025; 85027; 85610; 85730; 86850; 86900; 86901; 86920; 86922; 96374; 97110-GP; 97162-GP; 97165-GO; 99285-25; A9270-GY; C9113; J2405; J3475; J3480; J3490; J7030; P9016

== ENCOUNTER 2023-12-04 10:55 | Emergency (ER) | payer MEDICAID | END 2023-12-04 15:52 | disposition home or self-care (01) | LOC: JP.ED 10:55 | DX: R53.83 Other fatigue (principal); I11.0 Hypertensive heart disease with heart failure; I50.9 Heart failure, unspecified; I25.10 Atherosclerotic heart disease of native coronary artery without angina pectoris; Z86.73 Personal history of transient ischemic attack (TIA), and cerebral infarction without residual deficits; Z87.891 Personal history of nicotine dependence; Z79.82 Long term (current) use of aspirin; Z79.899 Other long term (current) drug therapy; Z79.02 Long term (current) use of antithrombotics/antiplatelets | CPT/HCPCS: 99283 ==

== ENCOUNTER 2024-05-21 16:02 | Inpatient (IN) | payer MEDICAID ==
[2024-05-21 17:38] LABS: APPEARANCE,URINE CLEAR (CLEAR); BILIRUBIN,URINE NEGATIVE (NEGATIVE); COLOR,URINE YELLOW (YELLOW); GLUCOSE,URINE NEGATIVE (NEGATIVE); KETONES,URINE NEGATIVE (NEGATIVE); LEUKOCYTE ESTERASE,URINE NEGATIVE (NEGATIVE); NITRITE,URINE NEGATIVE (NEGATIVE); OCCULT BLOOD,URINE NEGATIVE (NEGATIVE); PH,URINE 5.5 (5.0-8.0); PROTEIN,URINE NEGATIVE (NEGATIVE); UROBILINOGEN,URINE 0.2 EU/dL (0.2-1.0)
[2024-05-21 17:40] LABS: RBC,URINE 0-5 (0-5); WBC,URINE NOT SEEN (0-5)
[2024-05-21 17:41] LABS: AMORPHOUS SEDIMENT,URINE NOT SEEN; BACTERIA,URINE NOT SEEN; EPITHELIAL CELLS,URINE NOT SEEN; MUCUS,URINE NOT SEEN
[2024-05-21 17:54] LABS: BASOPHILS ABSOLUTE AUTO 0.03 K/uL (0.00-0.10); BASOPHILS PERCENT AUTO 0.3 % (0.1-1.3); EOSINOPHILS ABSOLUTE AUTO 0.21 K/uL (0.00-0.40); EOSINOPHILS PERCENT AUTO 1.9 % (0.0-5.4); HEMATOCRIT 37.2 % (38.4-49.7); HEMOGLOBIN 12.6 g/dL (12.9-16.9); IMMATURE GRAN ABSOLUTE AUTO 0.07 K/uL (0.00-0.23); IMMATURE GRAN PERCENT AUTO 0.6 % (0.0-0.7); LYMPHOCYTES ABSOLUTE AUTO 0.98 K/uL (0.8-3.3); LYMPHOCYTES PERCENT AUTO 8.7 % (11.4-47.7); MEAN CORPUSCULAR HEMOGLOBIN 31.9 pg (31.6-35.5); MEAN CORPUSCULAR HGB CONC 33.9 g/dL (31.6-35.5); MEAN CORPUSCULAR VOLUME 94.2 fL (81.4-99.0); MONOCYTES ABSOLUTE AUTO 0.78 K/uL (0.20-0.90); MONOCYTES PERCENT AUTO 6.9 % (3.3-12.6); NEUTROPHILS ABSOLUTE AUTO 9.18 K/uL (1.0-7.6); NEUTROPHILS PERCENT AUTO 81.6 % (40.0-78.1); PLATELET COUNT,PLT 251 K/uL (130-375); RED BLOOD CELL COUNT 3.95 M/uL (4.14-5.76); WHITE BLOOD CELL COUNT,WBC 11.3 K/uL (3.2-11.0)
[2024-05-21 18:15] LABS: A/G RATIO 0.7 (1.2-2.2); ALANINE AMINOTRANSFERASE,ALT 22 U/L (12-78); ALBUMIN 3.6 g/dL (3.4-5.0); ALKALINE PHOSPHATASE 93 U/L (46-116); ASPARTATE AMNIOTRANSFERASE,AST 19 U/L (15-37); BILIRUBIN TOTAL 1.1 mg/dL (0.2-1.0); BLOOD UREA NITROGEN,BUN 56 mg/dL (7-18); C-REACTIVE PROTEIN 8.23 mg/dL (<0.50); CALCIUM 9.2 mg/dL (8.5-10.1); CARBON DIOXIDE,CO2 24 mmol/L (21-32); CHLORIDE,CL 99 mmol/L (100-108); CREATININE 1.7 mg/dL (0.8-1.3); EST CRCL DRUG DOSING (CG) 45.92 mL/min; ESTIMATED GFR 45 mL/min (>60); GLUCOSE RANDOM 103 mg/dL (74-106); POTASSIUM,K 4.7 mmol/L (3.6-5.2); PROTEIN TOTAL,TP 9.1 g/dL (6.4-8.2); SODIUM,NA 136 mmol/L (140-148)
[2024-05-21 18:16] LABS: ANION GAP 17.7 mmol/L (5.0-14.0)
[2024-05-21] MEDS: fentaNYL 100 MCG/2 ML SDV IVPUSH ONE (18:29)
[2024-05-21] MEDS: Sodium Chloride 0.9% 1,000 ML IV SCH ×2 (18:40→23:00)
[2024-05-21] MEDS: Sodium Chloride 0.9% 100 ML ONE (19:03)
[2024-05-21] MEDS: fentaNYL 100 MCG/2 ML SDV ONE (19:03)
[2024-05-21] MEDS: Diltiazem 25 MG/5 ML SDV IVPUSH ONE (19:04)
[2024-05-21] MEDS: Piperacillin/Tazobactam 4.5 GM in Sodium Chloride 0.9% 100 ML IV ONE (19:05)
[2024-05-21] MEDS: Ketorolac 30 MG/ML SDV IVPUSH ONE (19:06)
[2024-05-21] MEDS ORDERED: Naloxone 0.4 MG/ML SDV IVPUSH PRN ×2 (20:55→22:34)
[2024-05-21] MEDS: ceFAZolin 1 GM in Sodium Chloride 0.9% 50 ML IV ONE (21:57)
[2024-05-21] MEDS: fentaNYL 50 MCG/ML SDV IVPUSH ONE (21:57)
[2024-05-21] MEDS ORDERED: Sodium Chloride 0.9% 10 ML Syringe FLUSH PRN (22:34)
[2024-05-21] MEDS: Diltiazem 100 MG in Sodium Chloride 0.9% 100 ML IV SCH (22:59)
[2024-05-21] MEDS ORDERED: Vancomycin 1 GM SDV IV SCH (23:00)
[2024-05-21] MEDS: Piperacillin/Tazobactam 4.5 GM in Sodium Chloride 0.9% 100 ML IV SCH (23:06)
[2024-05-21] MEDS: Haloperidol 1 MG Tab PO PRN (23:20)
[2024-05-21] MEDS: oxyCODONE 5 MG Tab PO PRN (23:20)
[2024-05-21] MEDS: Enoxaparin 40 MG/0.4 ML Syringe SUBCUT SCH (23:23)
[2024-05-22] MEDS: Acetaminophen 325 MG Tab PO PRN (03:16)
[2024-05-22 05:06] LABS: HEMATOCRIT 29.9 % (38.4-49.7); MEAN CORPUSCULAR HEMOGLOBIN 31.4 pg (31.6-35.5); MEAN CORPUSCULAR HGB CONC 33.4 g/dL (31.6-35.5); RED BLOOD CELL COUNT 3.18 M/uL (4.14-5.76); WHITE BLOOD CELL COUNT,WBC 11.4 K/uL (3.2-11.0)
[2024-05-22 05:20] LABS: CALCIUM 8.1 mg/dL (8.5-10.1); CREATININE 1.7 mg/dL (0.8-1.3); EST CRCL DRUG DOSING (CG) 45.92 mL/min; MAGNESIUM 1.5 mg/dL (1.8-2.4); POTASSIUM,K 3.9 mmol/L (3.6-5.2)
[2024-05-22 05:21] LABS: ANION GAP 19.9 mmol/L (5.0-14.0)
[2024-05-22] MEDS: Norepinephrine Bit/D5W Premix 4 MG in Premix Bag 1 BAG IV SCH (06:10)
[2024-05-22] MEDS: Norepinephrine Bit/D5W Premix 250 ML ONE (06:26)
[2024-05-22] MEDS: Pantoprazole 40 MG Tab.CR PO SCH (08:25)
[2024-05-22] MEDS: Aspirin 81 MG Tab.Chew PO SCH (08:47)
[2024-05-22] MEDS: Potassium Chloride 20 MEQ Tab.ER PO SCH (08:47)
[2024-05-22] MEDS: Magnesium Oxide 400 MG Tab PO SCH ×2 (08:48→08:53)
[2024-05-22] MEDS: Tamsulosin 0.4 MG Cap.ER PO SCH (08:49)
[2024-05-22] MEDS: Carvedilol 12.5 MG Tab PO SCH (08:50)
[2024-05-22] MEDS: Divalproex Sodium Delayed-Release 125 MG Cap.Sprink PO SCH (08:51)
[2024-05-22] MEDS: Magnesium Sulfate/Water 2 GM in Premix Bag 1 BAG IV SCH (09:17)
[2024-05-22] MEDS: Diltiazem IR 30 MG Tab PO SCH (12:20)
[2024-05-22] MEDS: Melatonin 3 MG Tab PO SCH (20:02)
[2024-05-22] MEDS: Gabapentin 300 MG Cap PO SCH (20:04)
[2024-05-22] MEDS: atorvaSTATin 20 MG Tab PO SCH (20:04)
[2024-05-22] MEDS: Sertraline 50 MG Tab PO SCH (20:04)
[2024-05-22] MEDS: HYDROmorphone 0.5 MG/0.5 ML Syringe IVPUSH PRN (20:05)
[2024-05-22] MEDS ORDERED: Sertraline 25 MG Tab PO SCH (21:00)
[2024-05-22] MEDS: Ondansetron 4 MG/2 ML SDV IV PRN (21:03)
[2024-05-23] MEDS: LORazepam 2 MG/ML SDV IVPUSH PRN (00:36)
[2024-05-23 06:11] LABS: HEMATOCRIT 28.6 % (38.4-49.7); HEMOGLOBIN 9.7 g/dL (12.9-16.9); MEAN CORPUSCULAR HEMOGLOBIN 31.9 pg (31.6-35.5); MEAN CORPUSCULAR HGB CONC 33.9 g/dL (31.6-35.5); MEAN CORPUSCULAR VOLUME 94.1 fL (81.4-99.0); RED BLOOD CELL COUNT 3.04 M/uL (4.14-5.76); WHITE BLOOD CELL COUNT,WBC 8.2 K/uL (3.2-11.0)
[2024-05-23 06:30] LABS: CALCIUM 8.6 mg/dL (8.5-10.1); CREATININE 1.4 mg/dL (0.8-1.3); EST CRCL DRUG DOSING (CG) 55.76 mL/min; MAGNESIUM 2.3 mg/dL (1.8-2.4); POTASSIUM,K 3.7 mmol/L (3.6-5.2)
[2024-05-23 06:32] LABS: ANION GAP 15.7 mmol/L (5.0-14.0)
[2024-05-23] MEDS: Diltiazem IR 30 MG Tab PO SCH (12:00)
[2024-05-23] MEDS: Carvedilol 12.5 MG Tab PO ONE (12:00)
[2024-05-23] MEDS: Diltiazem 100 MG in Sodium Chloride 0.9% 100 ML IV SCH (17:31)
[2024-05-23] MEDS: LORazepam 2 MG/ML SDV IVPUSH ONE (19:30)
[2024-05-23] MEDS: Lidocaine 2% Viscous Solution 15 ML UD PO ONE (19:58)
[2024-05-23] MEDS ORDERED: Carvedilol 12.5 MG Tab PO SCH (21:00)
[2024-05-23] MEDS: Haloperidol Lactate 5 MG/ML SDV IVPUSH ONE (21:14)
[2024-05-23] MEDS: Sodium Chloride 0.9% 1,000 ML IV SCH (21:25)
[2024-05-23] MEDS: Furosemide 40 MG Tab PO SCH (22:45)
[2024-05-23] MEDS: Haloperidol Lactate 5 MG/ML SDV IVPUSH PRN (23:05)
[2024-05-24] MEDS: Bisacodyl 10 MG Supp RECTAL PRN (14:09)
[2024-05-24] MEDS: Furosemide 20 MG/2 ML VIAL IVPUSH SCH (20:51)
[2024-05-24] MEDS: OLANZapine 10 MG Vial IM ONE (20:58)
[2024-05-25] MEDS: LORazepam 2 MG/ML SDV IVPUSH ONE (00:36)
[2024-05-25] MEDS: Digoxin 500 MCG/2 ML Amp IVPUSH ONE (00:36)
[2024-05-25 07:38] LABS: HEMATOCRIT 31.6 % (38.4-49.7); HEMOGLOBIN 10.8 g/dL (12.9-16.9); MEAN CORPUSCULAR HEMOGLOBIN 31.9 pg (31.6-35.5); MEAN CORPUSCULAR HGB CONC 34.2 g/dL (31.6-35.5); MEAN CORPUSCULAR VOLUME 93.2 fL (81.4-99.0); RED BLOOD CELL COUNT 3.39 M/uL (4.14-5.76); WHITE BLOOD CELL COUNT,WBC 10.8 K/uL (3.2-11.0)
[2024-05-25 07:59] LABS: A/G RATIO 0.5 (1.2-2.2); ALANINE AMINOTRANSFERASE,ALT 22 U/L (12-78); ALBUMIN 2.7 g/dL (3.4-5.0); ALKALINE PHOSPHATASE 72 U/L (46-116); ANION GAP 18.1 mmol/L (5.0-14.0); ASPARTATE AMNIOTRANSFERASE,AST 20 U/L (15-37); BILIRUBIN TOTAL 0.9 mg/dL (0.2-1.0); BLOOD UREA NITROGEN,BUN 18 mg/dL (7-18); C-REACTIVE PROTEIN 15.57 mg/dL (<0.50); CALCIUM 8.9 mg/dL (8.5-10.1); CARBON DIOXIDE,CO2 21 mmol/L (21-32); CHLORIDE,CL 107 mmol/L (100-108); EST CRCL DRUG DOSING (CG) 78.07 mL/min; ESTIMATED GFR 85 mL/min (>60); GLUCOSE RANDOM 75 mg/dL (74-106); POTASSIUM,K 3.1 mmol/L (3.6-5.2); PROTEIN TOTAL,TP 7.8 g/dL (6.4-8.2); SODIUM,NA 143 mmol/L (140-148)
[2024-05-25] MEDS: Nicotine 21 MG/24 Hr Patch TRDERM SCH (09:47)
[2024-05-25] MEDS: Diltiazem 180 MG Cap.CD PO SCH (14:34)
[2024-05-26 05:25] LABS: HEMATOCRIT 33.4 % (38.4-49.7); HEMOGLOBIN 11.5 g/dL (12.9-16.9); MEAN CORPUSCULAR HEMOGLOBIN 32.1 pg (31.6-35.5); MEAN CORPUSCULAR HGB CONC 34.4 g/dL (31.6-35.5); MEAN CORPUSCULAR VOLUME 93.3 fL (81.4-99.0); RED BLOOD CELL COUNT 3.58 M/uL (4.14-5.76); WHITE BLOOD CELL COUNT,WBC 8.2 K/uL (3.2-11.0)
[2024-05-26 05:46] LABS: A/G RATIO 0.5 (1.2-2.2); ALANINE AMINOTRANSFERASE,ALT 33 U/L (12-78); ALBUMIN 2.6 g/dL (3.4-5.0); ALKALINE PHOSPHATASE 89 U/L (46-116); ASPARTATE AMNIOTRANSFERASE,AST 25 U/L (15-37); BILIRUBIN TOTAL 0.8 mg/dL (0.2-1.0); BLOOD UREA NITROGEN,BUN 17 mg/dL (7-18); C-REACTIVE PROTEIN 11.12 mg/dL (<0.50); CALCIUM 8.6 mg/dL (8.5-10.1); CARBON DIOXIDE,CO2 24 mmol/L (21-32); CHLORIDE,CL 106 mmol/L (100-108); EST CRCL DRUG DOSING (CG) 78.07 mL/min; ESTIMATED GFR 85 mL/min (>60); GLUCOSE RANDOM 93 mg/dL (74-106); POTASSIUM,K 3.3 mmol/L (3.6-5.2); PROTEIN TOTAL,TP 7.8 g/dL (6.4-8.2); SODIUM,NA 142 mmol/L (140-148)
[2024-05-26 05:48] LABS: ANION GAP 15.3 mmol/L (5.0-14.0)
[2024-05-26] MEDS: Sennosides/Docusate Sodium 50-8.6 MG Tab PO SCH (08:23)
[2024-05-26] MEDS ORDERED: Furosemide 20 MG/2 ML VIAL IVPUSH SCH (09:00)
[2024-05-26] MEDS: Calcium Gluconate 10% 1 GM/10 ML SDV IVPUSH ONE (09:17)
[2024-05-26] MEDS: Enoxaparin 30 MG/0.3 ML Syringe SUBCUT SCH (09:17)
[2024-05-26] MEDS: Piperacillin/Tazobactam/Dext 4.5 GM in Premix Bag 1 BAG IV SCH (14:22)
[2024-05-27 05:50] LABS: HEMATOCRIT 32.4 % (38.4-49.7); HEMOGLOBIN 10.9 g/dL (12.9-16.9); MEAN CORPUSCULAR HEMOGLOBIN 31.3 pg (31.6-35.5); MEAN CORPUSCULAR HGB CONC 33.6 g/dL (31.6-35.5); MEAN CORPUSCULAR VOLUME 93.1 fL (81.4-99.0); RED BLOOD CELL COUNT 3.48 M/uL (4.14-5.76); WHITE BLOOD CELL COUNT,WBC 11.2 K/uL (3.2-11.0)
[2024-05-27 06:14] LABS: A/G RATIO 0.5 (1.2-2.2); ALANINE AMINOTRANSFERASE,ALT 28 U/L (12-78); ALBUMIN 2.6 g/dL (3.4-5.0); ALKALINE PHOSPHATASE 85 U/L (46-116); ANION GAP 13.9 mmol/L (5.0-14.0); ASPARTATE AMNIOTRANSFERASE,AST 18 U/L (15-37); BILIRUBIN TOTAL 0.6 mg/dL (0.2-1.0); BLOOD UREA NITROGEN,BUN 22 mg/dL (7-18); C-REACTIVE PROTEIN 5.98 mg/dL (<0.50); CALCIUM 8.6 mg/dL (8.5-10.1); CARBON DIOXIDE,CO2 21 mmol/L (21-32); CHLORIDE,CL 105 mmol/L (100-108); CREATININE 1.1 mg/dL (0.8-1.3); EST CRCL DRUG DOSING (CG) 71.15 mL/min; ESTIMATED GFR 75 mL/min (>60); GLUCOSE RANDOM 89 mg/dL (74-106); POTASSIUM,K 3.7 mmol/L (3.6-5.2); PROTEIN TOTAL,TP 7.5 g/dL (6.4-8.2); SODIUM,NA 140 mmol/L (140-148)
[2024-05-27] MEDS: Amoxicillin/Clavulanate K 875-125 MG Tab PO ONE (07:58)
[2024-05-27] MEDS: Apixaban 5 MG Tab PO SCH (08:55)
[2024-05-27] MEDS ORDERED: Apixaban 5 MG Tab PO SCH (09:00)
== END 2024-05-27 10:00 | DRG 872 ==
LOC: JP.ED 16:02 → JP.ICU 21:53 → JP.MS 05-26 09:36
PROVIDERS: ADMIT Nurse Practitioner; ATTEND Hospitalist
PROC: 3E03329 Introduction of Other Anti-infective into Peripheral Vein, Percutaneous Approach (ICD-10-PCS; 2024-05-21)
PROC: 3E033XZ Introduction of Vasopressor into Peripheral Vein, Percutaneous Approach (ICD-10-PCS; principal; 2024-05-23)
DX: A41.9 Sepsis, unspecified organism (principal); L03.116 Cellulitis of left lower limb; I13.0 Hypertensive heart and chronic kidney disease with heart failure and stage 1 through stage 4 chronic kidney disease, or unspecified chronic kidney disease; N17.9 Acute kidney failure, unspecified; F01.511 Vascular dementia, unspecified severity, with agitation; K56.609 Unspecified intestinal obstruction, unspecified as to partial versus complete obstruction; Z66 Do not resuscitate; I48.91 Unspecified atrial fibrillation; K52.9 Noninfective gastroenteritis and colitis, unspecified; I50.9 Heart failure, unspecified; N18.30 Chronic kidney disease, stage 3 unspecified; I25.10 Atherosclerotic heart disease of native coronary artery without angina pectoris; E11.51 Type 2 diabetes mellitus with diabetic peripheral angiopathy without gangrene; D63.1 Anemia in chronic kidney disease; E11.22 Type 2 diabetes mellitus with diabetic chronic kidney disease; I95.2 Hypotension due to drugs; T46.1X5A Adverse effect of calcium-channel blockers, initial encounter; G47.30 Sleep apnea, unspecified; F17.210 Nicotine dependence, cigarettes, uncomplicated; Z95.5 Presence of coronary angioplasty implant and graft; Z86.73 Personal history of transient ischemic attack (TIA), and cerebral infarction without residual deficits; Z95.1 Presence of aortocoronary bypass graft; Z79.82 Long term (current) use of aspirin; Z79.01 Long term (current) use of anticoagulants; Z79.899 Other long term (current) drug therapy
CPT/HCPCS: 36415; 51702; 71045; 71045-26; 74019; 74176; 80048; 80053; 81001; 83605; 83735; 84145; 84484; 85025; 85027; 86140; 87040; 87046; 87077; 87427; 87493; 89055; 93005; 93010; 93926-RT; 96365; 96375; 97161-GP; 99223; 99233; 99239; 99285; 99285-25; A9270-GY; J0690; J1160; J1170; J1630; J1650; J1885; J1940; J2060; J2405; J2543; J3010; J3370; J3475; J3490; J7030; J7050; U0002

== ENCOUNTER 2024-06-22 08:44 | Emergency (ER) | payer MEDICAID ==
[2024-06-22 09:25] LABS: BASOPHILS ABSOLUTE AUTO 0.05 K/uL (0.00-0.10); BASOPHILS PERCENT AUTO 0.4 % (0.1-1.3); EOSINOPHILS ABSOLUTE AUTO 0.33 K/uL (0.00-0.40); EOSINOPHILS PERCENT AUTO 2.9 % (0.0-5.4); HEMATOCRIT 19.6 % (38.4-49.7); IMMATURE GRAN ABSOLUTE AUTO 0.13 K/uL (0.00-0.23); IMMATURE GRAN PERCENT AUTO 1.2 % (0.0-0.7); LYMPHOCYTES ABSOLUTE AUTO 1.51 K/uL (0.8-3.3); LYMPHOCYTES PERCENT AUTO 13.5 % (11.4-47.7); MEAN CORPUSCULAR HEMOGLOBIN 32.2 pg (31.6-35.5); MEAN CORPUSCULAR HGB CONC 32.7 g/dL (31.6-35.5); MEAN CORPUSCULAR VOLUME 98.5 fL (81.4-99.0); MONOCYTES ABSOLUTE AUTO 0.63 K/uL (0.20-0.90); MONOCYTES PERCENT AUTO 5.6 % (3.3-12.6); NEUTROPHILS ABSOLUTE AUTO 8.57 K/uL (1.0-7.6); NEUTROPHILS PERCENT AUTO 76.4 % (40.0-78.1); PLATELET COUNT,PLT 204 K/uL (130-375); RED BLOOD CELL COUNT 1.99 M/uL (4.14-5.76); WHITE BLOOD CELL COUNT,WBC 11.2 K/uL (3.2-11.0)
[2024-06-22 09:29] LABS: HEMOGLOBIN 6.4 g/dL (12.9-16.9)
[2024-06-22 09:36] LABS: CALCIUM 8.5 mg/dL (8.5-10.1); CREATININE 0.9 mg/dL (0.8-1.3); EST CRCL DRUG DOSING (CG) 89.48 mL/min; POTASSIUM,K 3.7 mmol/L (3.6-5.2)
[2024-06-22 09:40] LABS: ANION GAP 10.7 mmol/L (5.0-14.0)
== END 2024-06-22 17:11 | disposition home or self-care (01) ==
LOC: JP.ED 08:44
DX: K92.2 Gastrointestinal hemorrhage, unspecified (principal); I11.0 Hypertensive heart disease with heart failure; I50.9 Heart failure, unspecified; I25.10 Atherosclerotic heart disease of native coronary artery without angina pectoris; I48.91 Unspecified atrial fibrillation; Z86.73 Personal history of transient ischemic attack (TIA), and cerebral infarction without residual deficits; Z95.5 Presence of coronary angioplasty implant and graft; Z95.1 Presence of aortocoronary bypass graft; Z79.82 Long term (current) use of aspirin; Z79.01 Long term (current) use of anticoagulants; Z79.899 Other long term (current) drug therapy
CPT/HCPCS: 36415; 36430; 80048; 82272; 85018; 85025; 86850; 86900; 86901; 86920; 86922; 99284; P9016

== ENCOUNTER 2024-08-15 06:42 | Emergency (ER) | payer MEDICAID ==
[2024-08-15 07:53] LABS: BASOPHILS ABSOLUTE AUTO 0.04 K/uL (0.00-0.10); BASOPHILS PERCENT AUTO 0.3 % (0.1-1.3); EOSINOPHILS ABSOLUTE AUTO 0.26 K/uL (0.00-0.40); EOSINOPHILS PERCENT AUTO 1.9 % (0.0-5.4); HEMOGLOBIN 11.5 g/dL (12.9-16.9); IMMATURE GRAN ABSOLUTE AUTO 0.16 K/uL (0.00-0.23); IMMATURE GRAN PERCENT AUTO 1.2 % (0.0-0.7); LYMPHOCYTES PERCENT AUTO 8.1 % (11.4-47.7); MEAN CORPUSCULAR HEMOGLOBIN 31.2 pg (31.6-35.5); MEAN CORPUSCULAR HGB CONC 33.8 g/dL (31.6-35.5); MEAN CORPUSCULAR VOLUME 92.1 fL (81.4-99.0); MONOCYTES PERCENT AUTO 9.6 % (3.3-12.6); NEUTROPHILS ABSOLUTE AUTO 10.66 K/uL (1.0-7.6); NEUTROPHILS PERCENT AUTO 78.9 % (40.0-78.1); PLATELET COUNT,PLT 280 K/uL (130-375); RED BLOOD CELL COUNT 3.69 M/uL (4.14-5.76); WHITE BLOOD CELL COUNT,WBC 13.5 K/uL (3.2-11.0)
[2024-08-15 07:57] LABS: APPEARANCE,URINE CLEAR (CLEAR); BILIRUBIN,URINE NEGATIVE (NEGATIVE); COLOR,URINE YELLOW (YELLOW); GLUCOSE,URINE NEGATIVE (NEGATIVE); KETONES,URINE NEGATIVE (NEGATIVE); LEUKOCYTE ESTERASE,URINE NEGATIVE (NEGATIVE); NITRITE,URINE NEGATIVE (NEGATIVE); OCCULT BLOOD,URINE NEGATIVE (NEGATIVE); PROTEIN,URINE 100 mg/dL (NEGATIVE); UROBILINOGEN,URINE 0.2 EU/dL (0.2-1.0)
[2024-08-15 08:05] LABS: AMORPHOUS SEDIMENT,URINE RARE; BACTERIA,URINE NOT SEEN; EPITHELIAL CELLS,URINE NOT SEEN; MUCUS,URINE NOT SEEN; RBC,URINE 0-5 (0-5); WBC,URINE NOT SEEN (0-5)
[2024-08-15 08:08] LABS: CALCIUM 9.1 mg/dL (8.5-10.1); CREATININE 0.8 mg/dL (0.8-1.3); EST CRCL DRUG DOSING (CG) 97.59 mL/min
[2024-08-15 08:13] LABS: PROTHROMBIN TIME 10.2 sec (9.2-10.6); PTT,PARTIAL THROMBOPLSTIN TIME 28.1 sec (21.8-27.3)
[2024-08-15] MEDS: Diltiazem 180 MG Cap.CD PO ONE (08:19)
[2024-08-15] MEDS: Sodium Chloride 0.9% 1,000 ML IV ONE (08:20)
[2024-08-15] MEDS ORDERED: Cefepime 2 GM in Sodium Chloride 0.9% 50 ML IV ONE (08:26)
[2024-08-15 08:30] LABS: TROPONIN I HIGH SENSITIVITY 17.7 pg/mL (<=60.3)
[2024-08-15] MEDS: Cefepime 2 GM in Sodium Chloride 0.9% 50 ML IV ONE (08:56)
[2024-08-15] MEDS: Sodium Chloride 0.9% 10 ML Syringe FLUSH PRN (09:38)
[2024-08-15] MEDS: Sodium Chloride 0.9% 80 ML IV ONE (09:38)
[2024-08-15] MEDS: Iopamidol 612 MG/ML 100 ML Bottle IV PRN (09:38)
[2024-08-15] MEDS: Carvedilol 12.5 MG Tab PO ONE (10:41)
[2024-08-15] MEDS: Divalproex Sodium Delayed-Release 125 MG Cap.Sprink PO ONE (10:41)
== END 2024-08-15 13:00 | disposition left against medical advice (07) ==
LOC: JP.ED 06:42
DX: A41.9 Sepsis, unspecified organism (principal); R65.20 Severe sepsis without septic shock; N17.9 Acute kidney failure, unspecified; F17.210 Nicotine dependence, cigarettes, uncomplicated; I25.10 Atherosclerotic heart disease of native coronary artery without angina pectoris; I11.0 Hypertensive heart disease with heart failure; I50.9 Heart failure, unspecified; Z95.1 Presence of aortocoronary bypass graft; Z86.73 Personal history of transient ischemic attack (TIA), and cerebral infarction without residual deficits; Z79.82 Long term (current) use of aspirin; Z79.899 Other long term (current) drug therapy
CPT/HCPCS: 36415; 71046; 74177; 80048; 81001; 83605; 83880; 84443; 84484; 85025; 85610; 85730; 87040; 87070; 87077; 87186; 87205; 93005; 96361; 96365; 96366; 96367; 99284; A9270; J0692; J3370; J3490; J7030; J7050; Q9967; 93010

== ENCOUNTER 2025-03-05 20:49 | Emergency (ER) | payer MEDICAID | END 2025-03-05 22:25 | disposition home or self-care (01) | LOC: JP.ED 20:49 | DX: L76.22 Postprocedural hemorrhage of skin and subcutaneous tissue following other procedure (principal); I48.91 Unspecified atrial fibrillation; I25.10 Atherosclerotic heart disease of native coronary artery without angina pectoris; I11.0 Hypertensive heart disease with heart failure; I50.9 Heart failure, unspecified; Z79.899 Other long term (current) drug therapy; Z79.82 Long term (current) use of aspirin; Z79.02 Long term (current) use of antithrombotics/antiplatelets; Z95.5 Presence of coronary angioplasty implant and graft; Z86.73 Personal history of transient ischemic attack (TIA), and cerebral infarction without residual deficits | CPT/HCPCS: 99283 ==